=== PATIENT | female | born 1990 | race Caucasian/White ===

== ENCOUNTER 2022-07-02 20:38 | Inpatient (IN) ==
[2022-07-02] MEDS ORDERED: Promethazine INJ(RESTRICTED) 25 MG/ML 1 ml VIAL IV PRN (21:27)
[2022-07-02] MEDS ORDERED: miSOPROStol 100 mcg TAB VAGINAL ONE (21:27)
[2022-07-02] MEDS ORDERED: Nalbuphine 10 MG/ML 1 ML VIAL IV PRN (21:27)
[2022-07-02] MEDS ORDERED: Lactated Ringers 1000 ml BAG 1,000 ML IV ONE (21:27)
[2022-07-02] MEDS ORDERED: Buffered Lidocaine 1% SYRIN 1 ml INTRADERM ONE (21:27)
[2022-07-02] MEDS ORDERED: Lactated Ringers 1000 ml BAG 1,000 ML IV SCH (22:00)
[2022-07-02 22:46] LABS: Platelet Count 168 10^3/ul (150-450)
[2022-07-02 22:56] LABS: Activated Partial Thrombo Time 25.4 seconds (26.0-38.0); INR 0.98 (0.88-1.18)
[2022-07-02 23:03] LABS: Urine Benzodiazepine Screen None Detected (None Detect); Urine Cannabinoids Screen None Detected (None Detect); Urine Opiates Screen None Detected (None Detect)
[2022-07-02 23:13] LABS: Schistocytes ABSENT
[2022-07-02 23:34] LABS: Albumin 3.4 g/dL (3.2-5.2); Albumin/Globulin Ratio 1.5 (1-3); Calcium 8.3 mg/dL (8.6-10.3); Creatinine, Serum 0.52 mg/dL (0.51-0.95); Globulin 2.2 g/dL (2-4); Potassium 3.5 mmol/L (3.5-5.0); Total Bilirubin 0.4 mg/dL (0.2-1.0); Total Protein 5.6 g/dL (6.4-8.9); eGFR CKD-EPI 128.9 (>60)
[2022-07-02 23:49] LABS: TSH Ultra Thyroid Stim Horm 1.15 mcIU/mL (0.34-5.60)
[2022-07-03 00:27] LABS: ABS Lymphocytes 0.8 10^3/uL (1.0-4.8); ABS Monocytes 0.5 10^3/uL (0.0-0.9); ABS Neutrophils 8.7 10^3/uL (1.5-7.6); Eosinophil % 0.2 %; Hematocrit 31.7 % (35-45); Hemoglobin 11.3 g/dL (11.5-14.3); Mean Corpuscular Hemoglobin 31.4 pg (27-33); Mean Corpuscular Hgb Conc 35.6 g/dL (31-36); Mean Corpuscular Volume 88.3 fL (80-97); Mean Platelet Volume 8.7 fL (7.5-11.2); Platelet Count 168 10^3/uL (150-450); Red Blood Count 3.59 10^6/uL (3.63-4.92); Red Cell Distribution Width 12.8 % (12-17); White Blood Count 10.1 10^3/uL (3.8-11.8)
[2022-07-03] MEDS ORDERED: miSOPROStol 100 mcg TAB VAGINAL ONE ×2 (02:08→09:50)
[2022-07-04] MEDS ORDERED: miSOPROStol 100 mcg TAB VAGINAL ONE ×4 (08:02→22:45)
[2022-07-04 15:29] LABS: DRVVT Screen Ratio 0.96 ratio (<1.20); LAC APTT 24 sec (25 - 37); Prothrombin Time(LAC) 10.6 sec (9.4 - 12.5)
[2022-07-04 17:47] LABS: Beta 2 Glycoprotein IgG <9.4 SGU
[2022-07-05] MEDS ORDERED: Morphine 10 MG/ML VIAL (1 ml) IV ONE (08:25)
[2022-07-05] MEDS ORDERED: Oxytocin in LR 20,000 MILLI.UNIT/1,000 ML BAG IV SCH ×2 (12:30→16:45)
[2022-07-05] MEDS ORDERED: Witch Hazel PAD JAR TOPICAL PRN (16:38)
[2022-07-05] MEDS ORDERED: Glycerin ADULT 2.4 gm SUPP PR PRN (16:38)
[2022-07-05] MEDS ORDERED: Dibucaine 1% OINT 28.35 GM TUBE PR PRN (16:38)
[2022-07-05] MEDS ORDERED: Lactated Ringers 1000 ml BAG 1,000 ML IV SCH (17:00)
[2022-07-06 07:48] LABS: Hematocrit 33.8 % (35-45); Hemoglobin 11.6 g/dL (11.5-14.3); Mean Corpuscular Hemoglobin 30.6 pg (27-33); Mean Corpuscular Hgb Conc 34.4 g/dL (31-36); Mean Corpuscular Volume 88.9 fL (80-97); Mean Platelet Volume 8.1 fL (7.5-11.2); Platelet Count 183 10^3/uL (150-450); Red Blood Count 3.81 10^6/uL (3.63-4.92); White Blood Count 13.4 10^3/uL (3.8-11.8)
[2022-07-06 07:59] VITALS: BP 103/54
[2022-07-06 08:23] LABS: ABS Basophils 0.1 10^3/uL (0.0-0.1); ABS Eosinophils 0.1 10^3/uL (0.0-0.5); ABS Lymphocytes 1.9 10^3/uL (1.0-4.8); ABS Monocytes 0.9 10^3/uL (0.0-0.9); ABS Neutrophils 10.3 10^3/uL (1.5-7.6); Lymphocyte % 14.4 %
[2022-07-10 16:55] LABS: Phospholipid Ab IgG < 9.4 GPL; Phospholipid Ab IgM, S < 9.4 MPL
== END 2022-07-06 13:53 | disposition home or self-care (01) | DRG 807 ==
LOC: MCHOBOUT 20:38 → MCHOB 21:38
PROVIDERS: ADMIT Obstetrics & Gynecology; ATTEND Obstetrics & Gynecology